=== PATIENT | male | born 1985 | race Caucasian/White ===

== ENCOUNTER 2016-11-05 12:36 | Emergency (ER) | payer SELFPAY ==
[2016-11-05 12:49] VITALS: BP 139/85
--- NOTE | 2016-11-05 13:31 | XRay Report ---
LEFT FOOT, 3 views: History: Pain, stepped on foreign body. The bony architecture is intact. Bony alignment is normal. No soft tissue abnormalities are seen. The joint spaces appear preserved. No radiopaque foreign body is appreciated on x-ray. IMPRESSION: Normal left foot.
--- NOTE | 2016-11-05 15:06 | Emergency Department Report ---
HPI - General Chief Complaint: Extremity Injury, Lower Time Seen by Provider: 11/05/16 14:35 - HPI HPI: Patient here today complaining that yesterday he stepped on a Ravi needle and this morning in his left foot is painful. Denies any drainage or bleeding. He said he has difficulty putting weight on his foot. He denies that foreign body PERRL off in his foot he said he stepped on a needle and it penetrated his foot but he was able to remove it. Reports pain 5 out of 5 worse with weight bearing. No [id number] medication taken. Denies any numbness or tingling. ED Past Medical Hx - Past Medical History Previous Medical History?: No - Surgical History Past Surgical History?: No - Family History Family history: no significant - Social History Smoking Status: Current Every Day Smoker Substance Use Type: Alcohol Other Social History: Single - Medications Home Medications: Home Medications Medication Instructions Recorded Confirmed Last Taken Type Ibuprofen [Motrin] 600 mg PO Q8H PRN #12 tablet 11/05/16 Unknown Rx Sulfamethoxazole/Trimethoprim 1 each PO BID #10 tablet 11/05/16 Unknown Rx [Bactrim DS TAB] ED Review of Systems ROS: Stated complaint: LEFT FOOT PAIN/STEPPED ON A NEEDLE Other details as noted in HPI Comment: All other systems reviewed and negative Constitutional: no symptoms reported Respiratory: no symptoms reported Cardiovascular: denies: chest pain, palpitations, dyspnea on exertion, edema, syncope Gastrointestinal: denies: nausea, vomiting, diarrhea, constipation Musculoskeletal: arthralgia. denies: back pain Skin: other (puncture wound left foot) Physical Exam - Physical Exam Vital Signs: Vital Signs 11/05/16 12:46 Temperature 98.7 F Pulse Rate 72 Respiratory 18 Rate Blood Pressure 139/85 O2 Sat by Pulse 100 Oximetry General: Patient's is 31-year-old male well-nourished well-developed in no acute distress. Physical Exam: Head: Normocephalic, atraumatic, no abrasion, no bruising and no contusion. Mouth: No pharyngeal exudate or erythema. Uvula is midline and oral airways patent. Moist and tongue is normal Neck: Supple, no adenopathy, full range of motion and no C-spine tenderness. No swelling or tracheal deviation Cardiovascular: S1, S2. Regular rate and rhythm. No murmur. Capillary refill is less then 3 seconds. Lungs: Clear to auscultate bilaterally. No rhonchi, wheezes or rales. No chest wall tenderness MSK: Strength 5/5 in all extremities. No joint deformity or crepitus. Normal inspection. Full range of motion to all extremities. A lucas is ambulating without any difficulties. Extremities: No clubbing, cyanosis or edema. +2 pulses. No neurovascular compromise Skin: Clean, dry and intact. Noted small puncture wound to the plantar aspect of left foot with mild erythema. Area tender to palpate. No drainage. Areas located plantar aspect of left foot below great toe. Psych: Normal mood and behavior. ED Course Vital Signs 11/05/16 12:46 Temperature 98.7 F Pulse Rate 72 Respiratory 18 Rate Blood Pressure 139/85 O2 Sat by Pulse 100 Oximetry - Reevaluation(s) Reevaluation #1: 11/05/16 15:13 Patient given tetanus vaccine booster 0.5 mL in emergency room for tetanus update. ED Medical Decision Making - Radiology Data Radiology results: report reviewed Xray report of left foot reveals no foreign body and no acute processes. - Medical Decision Making ED course: Patient status post puncture wound with small needle to his left foot , plantar, below great toe. Patient found to have mild cellulitis with arthralgias left foot. She reported showed no foreign body and no acute bony abnormality. Given Boostrix 0.5 mL to update tetanus. I explained to patient that his x-ray was negative for foreign body or any bony abnormalities. I instructed them that he seemed to have small infection around the area and will be treated with antibiotic. She voiced understanding and discharged home in stable condition to follow up with [facility] as he does not have a primary care doctor. X-ray/diagnostics-left foot x-ray revealed no acute fracture dislocation and no foreign body Assessment/plan 1. Puncture wound-left foot. Wound cleansed with ns, neosporinn ointment placed followed by bandaid 2. Cellulitis -mild left foot 3. Arthralgia left foot Patient discharged home with prescription for Bactrim DS and motrin. Instructions given to keep affected area clean and dry and to follow up at [facility] in 3-5 days for follow-up. Critical care attestation.: If time is entered above; I have spent that time in minutes in the direct care of this critically ill patient, excluding procedure time. ED Disposition Clinical Impression: Cellulitis of foot, left, Arthralgia of left foot Puncture wound of left foot without foreign body Qualifiers: Encounter type: initial encounter Qualified Code(s): S91.332A - Puncture wound without foreign body, left foot, initial encounter Disposition: TO HOME OR SELFCARE Is pt being admited?: No Does the pt Need Aspirin: No Condition: Stable Instructions: Arthralgia (ED), Cellulitis (ED), Puncture Wound (ED), Acute Wound Care (ED) Additional Instructions: Take antibiotic as prescribed Follow-up with your primary care physician in 3 to 5 days Keep affected area clean and dry. Followed discharge instruction on acute wound care . Please return to emergency room if you develop increasing redness, streaking, fever, difficulty moving in and the left forearm and increase in pain. Prescriptions: Ibuprofen [Motrin] 600 mg PO Q8H PRN #12 tablet PRN Reason: Pain Sulfamethoxazole/Trimethoprim [Bactrim DS TAB] 1 each PO BID #10 tablet Referrals: [facility] [Outside] - 3-5 Days Forms: Work/School Release Form(ED)
[2016-11-05] MEDS ORDERED: BOOSTRIX IM ONE (15:07)
[2016-11-05] MEDS ORDERED: TRIPLE ANTIBIOTIC TP ONE (15:17)
== END 2016-11-05 16:16 | disposition home or self-care (01) ==
LOC: ED 12:36
DX: S91.332A Puncture wound without foreign body, left foot, initial encounter (principal); L03.116 Cellulitis of left lower limb; F17.200 Nicotine dependence, unspecified, uncomplicated; W22.8XXA Striking against or struck by other objects, initial encounter; Y93.9 Activity, unspecified; Y99.9 Unspecified external cause status; Y92.89 Other specified places as the place of occurrence of the external cause
CPT/HCPCS: 90471; 90715; A6250